=== PATIENT | male | born 1965 | race Caucasian/White ===

== ENCOUNTER → 2016-11-22 | Outpatient (CLI) | payer OTHER ==
[~2016-11-22] MED LIST: HYDROCODONE BIT1 T11 PO; ZOVIRAX800 MG PO
== END | disposition home or self-care (01) ==
LOC: CARD 15:04
DX: R06.02 Shortness of breath (principal); R05 Cough; R00.0 Tachycardia, unspecified

== ENCOUNTER → 2016-11-25 | Outpatient (CLI) | payer OTHER ==
[2016-11-25 07:15] LABS: BASO # 0.1 10*3/uL (0.0-0.1); BASO % 1.2 % (0.0-1.0); EOS # 0.3 10*3/uL (0.0-0.4); EOS % 3.7 % (1.0-4.0); HEMATOCRIT 46.7 % (42.0-52.0); HEMOGLOBIN 15.3 g/dl (14.0-18.0); LYMPH # 2.3 10*3/uL (1.3-4.4); LYMPH % 33.9 % (27.0-41.0); MEAN CELL VOLUME 86.2 fl (80.0-94.0); MEAN CORPUSCULAR HGB 28.2 pg (27.0-31.0); MEAN CORPUSCULAR HGB CONC 32.8 g/dl (33.0-37.0); MEAN PLATELET VOLUME 10.7 fl (9.6-12.3); MONO # 0.6 10*3/uL (0.1-1.0); NEUT # 3.5 10*3/uL (2.3-7.9); NEUT % 52.1 % (47.0-73.0); PLATELET COUNT AUTOMATED 237 10*3/uL (130-400); RED BLOOD COUNT 5.42 10*6/uL (4.50-5.90); RED CELL DISTRI WIDTH 12.9 % (0-14.5); WHITE BLOOD COUNT 6.7 10*3/uL (4.8-10.8)
[2016-11-25 07:46] LABS: ALBUMIN 3.8 gm/dl (3.1-4.5); ALKALINE PHOSPHATASE 91 U/L (45-117); BUN 16 mg/dl (7-24); CHLORIDE 104 mmol/L (98-107); CHOLESTEROL 209 mg/dL (<200); CREATININE 0.88 mg/dL (0.70-1.30); IRON 70 ug/dL (65-175); POTASSIUM 4.6 mmol/L (3.5-5.1); SGOT/AST 24 IU/L (3-35); SGPT/ALT 43 U/L (12-78); SODIUM 139 mmol/L (136-145); TOTAL IRON BINDING CAPACITY 282 ug/dl (250-450); TOTAL PROTEIN 7.4 gm/dL (6.4-8.2); TRIGLYCERIDES 186 mg/dl (<150); VLDL CHOLESTEROL 37 mg/dL (6-40)
[2016-11-25 07:48] LABS: HDL CHOLESTEROL 39 mg/dl (40-60); LDL CHOLESTEROL 133 mg/dL (9-159)
== END | disposition home or self-care (01) ==
LOC: LAB 06:24
PROVIDERS: Nurse Practitioner Family
DX: Z12.5 Encounter for screening for malignant neoplasm of prostate (principal); R00.0 Tachycardia, unspecified; R06.89 Other abnormalities of breathing; R42 Dizziness and giddiness; R53.83 Other fatigue; R79.89 Other specified abnormal findings of blood chemistry

== ENCOUNTER → 2017-01-07 | Outpatient (CLI) | payer OTHER | END | disposition home or self-care (01) | LOC: US 10:44 | DX: I65.23 Occlusion and stenosis of bilateral carotid arteries (principal) ==

== ENCOUNTER → 2017-01-12 | Outpatient (CLI) | payer OTHER | END | disposition home or self-care (01) | LOC: CT 08:56 | DX: R42 Dizziness and giddiness (principal) ==

== ENCOUNTER → 2017-03-31 | Outpatient (CLI) | payer OTHER ==
--- NOTE | ~2017-03-31 | HM ---
[place], [place] HOLTER MONITOR REPORT NAME: ISH OBRIEN UNIT #: [id number] ROOM: DOCTOR: PENELOPE WOODARD MD BIRTHDATE: [birth year] DOS: 04/04/2017 STUDY: 48-hour Holter monitor. REFERRING PHYSICIAN: Liseth Waldrop NP. INDICATION: Tachycardia and vertigo. FINDINGS: 1. The patient underwent 48-hour Holter monitoring. The patient has a heart rate 78 beats per minute with a minimum heart rate of 48 beats per minute with maximum heart 150 beats per minute with a normal sinus pain and predominant rhythm. 2. Supraventricular activity: Isolated PACs noted. 3. Ventricular activity: One isolated PVC noted. 4. No significant blocks, pauses, or bradycardia. 5. No diary was returned. SUMMARY OF FINDINGS: Benign 48-hour Holter monitor with very rare PACs and a single ectopic ventricular beat. PENELOPE WOODARD MD CM:HOLTER:HOLTER MONITOR REPORT [id number] PENELOPE WOODARD MD
== END | disposition home or self-care (01) ==
LOC: CARD 07:45
DX: R00.0 Tachycardia, unspecified (principal); R42 Dizziness and giddiness

== ENCOUNTER 2019-02-26 02:24 | Emergency (ER) | payer OTHER ==
[~2019-02-26] VITALS: Ht 185.4 cm; Wt 108.9 kg
[2019-02-26 03:15] LABS: HEMATOCRIT 43.4 % (42.0-52.0); HEMOGLOBIN 14.8 g/dl (14.0-18.0); MEAN CELL VOLUME 85.3 fl (80.0-94.0); MEAN CORPUSCULAR HGB 29.1 pg (27.0-31.0); MEAN CORPUSCULAR HGB CONC 34.1 g/dl (33.0-37.0); MEAN PLATELET VOLUME 10.5 fl (9.6-12.3); PLATELET COUNT AUTOMATED 185 10*3/uL (130-400); RED BLOOD COUNT 5.09 10*6/uL (4.50-5.90); RED CELL DISTRI WIDTH 12.5 % (0-14.5); WHITE BLOOD COUNT 5.1 10*3/uL (4.8-10.8)
[2019-02-26 03:32] LABS: ALBUMIN 3.6 gm/dl (3.1-4.5); ALKALINE PHOSPHATASE 80 U/L (45-117); BUN 15 mg/dl (7-24); CHLORIDE 107 mmol/L (98-107); CREATININE 1.22 mg/dL (0.70-1.30); POTASSIUM 3.8 mmol/L (3.5-5.1); SGOT/AST 28 IU/L (3-35); SGPT/ALT 42 U/L (12-78); SODIUM 137 mmol/L (136-145); TOTAL PROTEIN 6.9 gm/dL (6.4-8.2)
[2019-02-26 03:37] LABS: ATYPICAL LYMPHS 1 % (0-0); PLATELET SUFFICIENCY NORMAL (NORMAL); TOTAL CELLS COUNTED 100 #CELLS
[2019-02-26] MEDS ORDERED: LOMOTIL 2.5-0.1 EACH PO (04:37)
[2019-02-26] MEDS ORDERED: TAMIFLU 75MG CA75 MG PO (04:37)
[2019-02-26] MEDS ORDERED: ZOFRAN4 MG PO (04:37)
== END 2019-02-26 05:13 | disposition home or self-care (01) ==
LOC: ED 02:24
PROVIDERS: Emergency Medicine Emergency Medical Services
DX: J10.1 Influenza due to other identified influenza virus with other respiratory manifestations (principal)

== ENCOUNTER 2019-05-02 15:47 | Inpatient (IN) | payer OTHER ==
[~2019-05-02] VITALS: Ht 188 cm; Wt 109.8 kg
[~2019-05-02 15:47] MED LIST changes: +LOMOTIL 2.5-0.1 EACH PO; +TAMIFLU 75MG CA75 MG PO; +ZOFRAN4 MG PO
[2019-05-02 15:53] VITALS: BP 152/89
[2019-05-02 16:30] LABS: BASO # 0.1 10*3/uL (0.0-0.1); BASO % 0.9 % (0.0-1.0); EOS # 0.3 10*3/uL (0.0-0.4); EOS % 3.5 % (1.0-4.0); HEMATOCRIT 45.6 % (42.0-52.0); HEMOGLOBIN 15.1 g/dl (14.0-18.0); LYMPH # 2.6 10*3/uL (1.3-4.4); LYMPH % 32.4 % (27.0-41.0); MEAN CELL VOLUME 86.5 fl (80.0-94.0); MEAN CORPUSCULAR HGB 28.7 pg (27.0-31.0); MEAN CORPUSCULAR HGB CONC 33.1 g/dl (33.0-37.0); MEAN PLATELET VOLUME 10.3 fl (9.6-12.3); MONO # 0.7 10*3/uL (0.1-1.0); MONO % 9.2 % (3.0-9.0); NEUT # 4.4 10*3/uL (2.3-7.9); NEUT % 53.9 % (47.0-73.0); PLATELET COUNT AUTOMATED 249 10*3/uL (130-400); RED BLOOD COUNT 5.27 10*6/uL (4.50-5.90); WHITE BLOOD COUNT 8.1 10*3/uL (4.8-10.8)
[2019-05-02 16:41] LABS: ACT PARTIAL THROMBO TIME 28.4 SECONDS (20.0-32.1)
[2019-05-02 16:55] LABS: ALBUMIN 3.8 gm/dl (3.1-4.5); ALKALINE PHOSPHATASE 86 U/L (45-117); BUN 13 mg/dl (7-24); CHLORIDE 106 mmol/L (98-107); CREATININE 0.93 mg/dL (0.70-1.30); LIPASE 88 U/L (73-393); POTASSIUM 4.1 mmol/L (3.5-5.1); SGOT/AST 16 IU/L (3-35); SGPT/ALT 35 U/L (12-78); SODIUM 138 mmol/L (136-145); TROPONIN I < 0.015 ng/ml (<0.045)
[2019-05-02 17:14] VITALS: BP 134/82
--- NOTE | 2019-05-02 17:15 | NUR ---
PT IS RESTING IN BED. STATES THAT SYMPTOMS ARE NOT ANY BETTER OR WORSE. N OSIGNS OF ACUTE DISTRESS. HE IS ON CELL PHONE. VS STABLE. WILL CONTINUE TO MONITOR.
[2019-05-02 20:30] VITALS: BP 144/78
--- NOTE | 2019-05-02 20:30 | NUR ---
A 53, admitted to , under the services of MARYLIN Prado DO with a diagnosis of TIA. Chief complaint is EYE PROBLEM. Patient arrived via stretcher from ER. Monitor applied. Initial assessment completed. Vital signs taken and recorded. MARYLIN PRADO DO notified of admission to the unit. Orders received. See assessment for past medical history, medications and allergies. Patient and/or family oriented to unit. [address] visitation policy reviewed. Clothing/patient valuable form completed. CHIP MOCTEZUMA
--- NOTE | 2019-05-02 21:16 | NUR ---
PATIENT STATED HE DOES WANT HIS FLU SHOT. I ASKED IF HE WANTED IT TONIGHT AND HE STATED HE WANTED TO GET IT IN THE MORNING. PATIENT SEEMED UNSURE OF IF HE WANTED IT WHEN TALKING TO HIM ABOUT IT. HE STATED TO ME AND HIS THAT EVERY TIME HE GETS IT HE GETS SICK. TOLD HIM HE SHOULD GET IT AND THEN AFTER DISCUSSING IT WITH HER HE AGREED.
--- NOTE | 2019-05-02 21:18 | NUR ---
PATIENT STATED HE DOES NOT TAKE ANY HOME MEDS. WENT OVER PREVIOUS MEDS LISTED IN MED REC AND PATIENT EITHER STATED THEY WERE COMPLETED OR HE DID NOT TAKE THEM.
--- NOTE | 2019-05-02 22:16 | NUR ---
ORTHOSTATIC'S DONE AND DOCUMENTED.
--- NOTE | 2019-05-02 23:40 | NUR ---
PATIENT RESTING IN BED QUIETLY. NO SYMPTOMS OF TIA PRESENT. NO EYE CHANGES PER PATIENT. PATIENT STATED HE FELT FINE AND HAD NO COMPLAINTS. CALL LIGHT WITHIN REACH. FLUIDS RUNNING INTO RIGHT AC AT 80 ML/HR. WENT OVER NEURO CHECKS WITH PATIENT AND RATIONALE FOR THEM. NO QUESTIONS AT THIS TIME. WILL CONTINUE TO MONITOR THE PATIENT.
[2019-05-03] VITALS: BP 126/72
[2019-05-03 06:36] LABS: BASO # 0.1 10*3/uL (0.0-0.1); BASO % 1.3 % (0.0-1.0); EOS # 0.3 10*3/uL (0.0-0.4); EOS % 4.7 % (1.0-4.0); HEMOGLOBIN 14.4 g/dl (14.0-18.0); LYMPH # 2.2 10*3/uL (1.3-4.4); LYMPH % 35.8 % (27.0-41.0); MEAN CELL VOLUME 86.1 fl (80.0-94.0); MEAN CORPUSCULAR HGB 28.2 pg (27.0-31.0); MEAN CORPUSCULAR HGB CONC 32.7 g/dl (33.0-37.0); MEAN PLATELET VOLUME 10.2 fl (9.6-12.3); MONO # 0.6 10*3/uL (0.1-1.0); MONO % 9.4 % (3.0-9.0); NEUT % 48.6 % (47.0-73.0); PLATELET COUNT AUTOMATED 227 10*3/uL (130-400); RED BLOOD COUNT 5.11 10*6/uL (4.50-5.90); WHITE BLOOD COUNT 6.2 10*3/uL (4.8-10.8)
[2019-05-03 06:51] LABS: ALBUMIN 3.4 gm/dl (3.1-4.5); ALKALINE PHOSPHATASE 79 U/L (45-117); BUN 12 mg/dl (7-24); CHLORIDE 108 mmol/L (98-107); CHOLESTEROL 186 mg/dL (<200); CREATININE 0.97 mg/dL (0.70-1.30); FREE T4 0.98 ng/dl (0.76-1.46); HDL CHOLESTEROL 33 mg/dl (40-60); LDL CHOLESTEROL 121 mg/dL (9-159); PHOSPHOROUS 3.5 mg/dL (2.5-4.9); POTASSIUM 4.2 mmol/L (3.5-5.1); SGOT/AST 15 IU/L (3-35); SGPT/ALT 33 U/L (12-78); SODIUM 142 mmol/L (136-145); TOTAL PROTEIN 6.4 gm/dL (6.4-8.2); TRIGLYCERIDES 159 mg/dl (<150); VLDL CHOLESTEROL 32 mg/dL (6-40)
[2019-05-03 06:57] LABS: ACT PARTIAL THROMBO TIME 29.1 SECONDS (20.0-32.1)
[2019-05-03 07:45] LABS: VITAMIN D, 25-HYDROXY 31.2 ng/mL (30-100)
[2019-05-03 08:00] VITALS: BP 148/70
--- NOTE | 2019-05-03 08:28 | NUR ---
SPEECH PATHOLOGY Nursing screen completed. There are no reports of acute communication or swallowing difficulty therefore speech services are not indicated at this time. This dept. will remain available if future needs arise. WILLIAM SPANGLER MSCCC-CULINARY ASSISTANT
--- NOTE | 2019-05-03 09:00 | NUR ---
Fast Food Attendant in to talk to patient. Patient states lives at home with . There are no steps in the home. Physician: valeria bills Pharmacy: [facility] health services: none Patient's level of ADLs: INDEPENDENT Patient has working utilities: all working DME: none Follow-up physician's appointment after d/c: will be made by hospitalist nurse director upon discharge Does patient want to access PORTAL?: no Discharge plan discussed with patient, he states he lives at home with , is independent in adls and ambulation, works, drives, he states he will return home when medically stable and denies any home needs. JOSEF GARCIA
[2019-05-03] MEDS ORDERED: LIPITOR40 MG PO (12:55)
[2019-05-03] MEDS ORDERED: ASPIR LOW81 MG PO (12:55)
--- NOTE | 2019-05-03 13:09 | NUR ---
[facility] Discharge instructions reviewed with patient/family. Patient receptive and verbalizes understanding. Follow-up care arranged. Written instructions given to patient/family. DESTINEY VALENTIN
== END 2019-05-03 13:09 | disposition home or self-care (01) | DRG 69 ==
LOC: ED 15:47 → 4E 18:30 → EDHOLD 18:30 → 4E 19:54
PROVIDERS: Emergency Medicine; Internal Medicine; ADMIT Family Medicine
DX: G45.9 Transient cerebral ischemic attack, unspecified (principal); E44.1 Mild protein-calorie malnutrition; E86.0 Dehydration; E87.8 Other disorders of electrolyte and fluid balance, not elsewhere classified; E78.5 Hyperlipidemia, unspecified; Z68.31 Body mass index [BMI] 31.0-31.9, adult; Z79.82 Long term (current) use of aspirin; Z79.899 Other long term (current) drug therapy

== ENCOUNTER → 2019-05-09 | Outpatient (CLI) | payer OTHER ==
[~2019-05-09] MED LIST changes: +ASPIR LOW81 MG PO; +LIPITOR40 MG PO
== END | disposition home or self-care (01) ==
LOC: US 07:26
DX: I65.23 Occlusion and stenosis of bilateral carotid arteries (principal); R03.0 Elevated blood-pressure reading, without diagnosis of hypertension; H53.9 Unspecified visual disturbance; E04.2 Nontoxic multinodular goiter

== ENCOUNTER 2022-06-26 09:05 | Emergency (ER) | payer OTHER ==
[~2022-06-26] VITALS: Ht 185.4 cm; Wt 113.4 kg
[2022-06-26 09:26] LABS: BASO # 0.1 10*3/uL (0.0-0.1); BASO % 0.9 % (0.0-1.0); EOS # 0.2 10*3/uL (0.0-0.4); EOS % 4.2 % (1.0-4.0); HEMATOCRIT 45.4 % (42.0-52.0); LYMPH # 1.8 10*3/uL (1.3-4.4); LYMPH % 31.4 % (27.0-41.0); MEAN CELL VOLUME 85.8 fl (80.0-94.0); MEAN CORPUSCULAR HGB 28.7 pg (27.0-31.0); MEAN CORPUSCULAR HGB CONC 33.5 g/dl (33.0-37.0); MEAN PLATELET VOLUME 10.2 fl (9.6-12.3); MONO # 0.5 10*3/uL (0.1-1.0); MONO % 9.5 % (3.0-9.0); NEUT # 3.1 10*3/uL (2.3-7.9); NEUT % 53.8 % (47.0-73.0); PLATELET COUNT AUTOMATED 242 10*3/uL (130-400); RED BLOOD COUNT 5.29 10*6/uL (4.50-5.90); RED CELL DISTRI WIDTH 12.9 % (0-14.5); WHITE BLOOD COUNT 5.7 10*3/uL (4.8-10.8)
[2022-06-26 09:47] LABS: ACT PARTIAL THROMBO TIME 30.2 SECONDS (20.0-32.1); INTERNATIONAL NORM RATIO 1.1 (2.0-3.5)
[2022-06-26 09:47] LABS: ALKALINE PHOSPHATASE 80 U/L (46-116); BUN 9 mg/dl (9-23); CHLORIDE 105 mmol/L (98-107); POTASSIUM 3.7 mmol/L (3.4-5.1); SGPT/ALT 38 U/L (10-49); TOTAL PROTEIN 6.3 gm/dL (6.0-8.0)
== END 2022-06-26 15:24 | disposition home or self-care (01) ==
LOC: ED 09:05
PROVIDERS: Internal Medicine
DX: R55 Syncope and collapse (principal)